=== PATIENT | male | born 1985 | race African-American/Black ===

== ENCOUNTER 2016-11-16 10:57 | Emergency (ER) | payer OTHER, SELFPAY ==
[~2016-11-16] VITALS: Ht 177.8 cm; Wt 81.8 kg
[2016-11-16 13:06] VITALS: BP 127/87
== END 2016-11-16 13:07 | disposition home or self-care (01) ==
LOC: EMS 10:58
DX: T59.91XA Toxic effect of unspecified gases, fumes and vapors, accidental (unintentional), initial encounter (principal); F17.210 Nicotine dependence, cigarettes, uncomplicated; Z88.2 Allergy status to sulfonamides; Z88.8 Allergy status to other drugs, medicaments and biological substances
CPT/HCPCS: 99281